=== PATIENT | female | born 1965 | race African-American/Black ===

== ENCOUNTER 2017-11-20 21:20 | Emergency (ER) | payer SELFPAY ==
[~2017-11-20 21:20] MED LIST: LISI10TA PO; Z.0.NO CURRENT MEDS
[2017-11-20 21:21] VITALS: BP 193/96; PULSE 91; RESP 18; TEMP 98.5
[2017-11-20] MEDS ORDERED: CARV12.52 PO (21:33)
[2017-11-20] MEDS ORDERED: LISI2.5T3 PO (21:33)
[2017-11-20] MEDS ORDERED: SODIUM CHLOR 0.9% 1000 ML INJ 1,000 ML IV SCH (21:49)
--- NOTE | 2017-11-20 21:57 | PD ---
HPI Chief Complaint: Abdominal Pain Time Seen by Provider: 21:37 Travel History International Travel<30 days: No Contact w/Intl Traveler<30days: No Traveled to known affect area: No History of Present Illness HPI The patient was seen and examined in the presence of the nurse. This patient complains of abdominal pain. Duration is 24 hours. Severity is moderate. She has nausea and vomiting. Denies fever or diarrhea. Location of her pain is epigastric primarily. She says she has a history of gallstones. Denies alcohol or drug abuse. No alleviating factors. Symptoms started after a greasy meal of fried chicken yesterday evening. That was the exacerbating factor. PFSH Past Medical History Asthma: Yes Cancer: No Cardiac Catheterization: Yes (AUG 2010) Cardiovascular Problems: Yes Congestive Heart Failure: Yes Diabetes: No Patient Takes Glucophage: No Diminished Hearing: No Endocrine: No Gastrointestinal Disorders: Yes Genitourinary: No Hypertension: Yes Immune Disorder: No Musculoskeletal: No Neurologic: No Psychiatric: No Reproductive: No Respiratory: Yes Immunizations Current: Yes Tetanus Vaccination: > 5 Years Influenza Vaccination: No ?: Not LMP: 11/04/17 : 3 Para: 3 Tubal Ligation: Yes Past Surgical History Abdominal Surgery: Yes ( C SECTION; TUBAL LIGATION) AICD: No Arteriovenous Shunt: No Section: Yes Insulin Pump: No Joint Replacement: No Pacemaker: No Other Surgery: Yes Social History Alcohol Use: No Tobacco Use: No Substance Use: No Allergies-Medications (Allergen,Severity, Reaction): Coded Allergies: No Known Allergies (Verified Adverse Reaction, Unknown, 11/20/17) Reported Meds & Prescriptions Reported Meds & Active Scripts Active Reported Lisinopril 2.5 Mg Tab 2.5 Mg PO DAILY Carvedilol 12.5 Mg Tab 12.5 Mg PO BID Review of Systems General / Constitutional: No: Fever Eyes: No: Visual changes HENT: No: Headaches Cardiovascular: No: Chest Pain or Discomfort Respiratory: No: Shortness of Breath Gastrointestinal: Positive: Nausea, Vomiting, Abdominal Pain Genitourinary: No: Dysuria Musculoskeletal: No: Pain Skin: No Rash Neurologic: No: Weakness Psychiatric: No: Depression Endocrine: No: Polydipsia Hematologic/Lymphatic: No: Easy Bruising Physical Exam Narrative GENERAL: Well-nourished, well-developed patient with abdominal pain . SKIN: Focused skin assessment reveals no rash and nodules. Skin is Warm and dry. HEAD: Atraumatic. Normocephalic. EYES: Pupils equal and round. No scleral icterus. No injection or drainage. ENT: No nasal bleeding or discharge. Mucous membranes pink and moist. NECK: Trachea midline. No JVD. CARDIOVASCULAR: Regular rate and rhythm. No murmur appreciated. RESPIRATORY: No accessory muscle use. Clear to auscultation. Breath sounds equal bilaterally. GASTROINTESTINAL: Abdomen soft, epigastrium is tender without rebound or guarding. nondistended. Hepatic and splenic margins not palpable. There is no lower quadrant or right upper quadrant tenderness MUSCULOSKELETAL: No obvious deformities. No clubbing. No cyanosis. No edema. NEUROLOGICAL: Awake and alert. No obvious cranial nerve deficits. Motor grossly within normal limits. Normal speech. PSYCHIATRIC: Appropriate mood and affect; insight and judgment normal. Data Data Last Documented VS Vital Signs Date Time Temp Pulse Resp B/P (MAP) Pulse Ox O2 Delivery O2 Flow Rate FiO2 11/20/17 21:21 98.5 91 18 193/96 (128) Orders Orders Complete Blood Count With Diff (11/20/17 21:49) Comprehensive Metabolic Panel (11/20/17 21:49) Lipase (11/20/17 21:49) Prothrombin Time / Inr (Pt) (11/20/17 21:49) Ct Abd/Pel W Iv Contrast(Rout) (11/20/17 21:49) Iv Access Insert/Monitor (11/20/17 21:49) NPO (11/20/17 21:49) Sodium Chlor 0.9% 1000 Ml Inj (Ns 1000 M (11/20/17 21:49) Sodium Chloride 0.9% Flush (Ns Flush) (11/20/17 22:00) Promethazine Inj (Phenergan Inj) (11/20/17 22:00) Hydromorphone Pf Inj (Dilaudid Pf Inj) (11/20/17 23:30) Iohexol 350 Inj (Omnipaque 350 Inj) (11/20/17 23:46) Labs Laboratory Tests Test 11/20/17 22:04 White Blood Count 8.1 TH/MM3 Red Blood Count 5.14 MIL/MM3 Hemoglobin 11.9 GM/DL Hematocrit 37.9 % Mean Corpuscular Volume 73.8 FL Mean Corpuscular Hemoglobin 23.1 PG Mean Corpuscular Hemoglobin Concent 31.3 % Red Cell Distribution Width 16.1 % Platelet Count 306 TH/MM3 Mean Platelet Volume 9.1 FL Neutrophils (%) (Auto) 75.7 % Lymphocytes (%) (Auto) 17.9 % Monocytes (%) (Auto) 4.5 % Eosinophils (%) (Auto) 0.8 % Basophils (%) (Auto) 1.1 % Neutrophils # (Auto) 6.2 TH/MM3 Lymphocytes # (Auto) 1.5 TH/MM3 Monocytes # (Auto) 0.4 TH/MM3 Eosinophils # (Auto) 0.1 TH/MM3 Basophils # (Auto) 0.1 TH/MM3 CBC Comment DIFF FINAL Differential Comment Prothrombin Time 10.4 SEC Prothromb Time International Ratio 1.0 RATIO Blood Urea Nitrogen 10 MG/DL Creatinine 1.00 MG/DL Random Glucose 106 MG/DL Total Protein 8.0 GM/DL Albumin 3.5 GM/DL Calcium Level 8.8 MG/DL Alkaline Phosphatase 127 U/L Aspartate Amino Transf (AST/SGOT) 22 U/L Alanine Aminotransferase (ALT/SGPT) 24 U/L Total Bilirubin 0.4 MG/DL Sodium Level 140 MEQ/L Potassium Level 4.2 MEQ/L Chloride Level 104 MEQ/L Carbon Dioxide Level 25.3 MEQ/L Anion Gap 11 MEQ/L Estimat Glomerular Filtration Rate 71 ML/MIN Lipase 89 U/L MDM Medical Decision Making Medical Screen Exam Complete: Yes Emergency Medical Condition: Yes Medical Record Reviewed: Yes Differential Diagnosis Pancreatitis, cholecystitis, hepatitis Narrative Course I have reviewed the patient's electronic medical record. IV placed and labs sent I gave her injection of Phenergan. She declines pain medicine at this time I gave 1 L normal saline IV bolus CBC is normal CMP is normal Lipase is normal CT of abdomen pelvis with IV contrast does not show any emergent findings. She does have gallstones but she is known that she has had them for at least 2 years. Patient is not tender over the gallbladder and she has no leukocytosis or elevation of LFTs or lipase or prior cholecystic fluid or gallbladder wall thickening to support acute cholecystitis. There is a small amount of ascites on the CT scan of unknown significance. She denies any alcohol abuse or history of liver disease and her LFTs are normal I gave her a pain injection and on recheck she feels much better Recommend she start with primary care follow-up and have a low-fat bland diet I did write her some as needed medication for pain or nausea if she needs it Diagnosis Primary Impression: Epigastric abdominal pain Additional Impression: Multiple gallstones Additional Instructions: The patient was advised to follow up with their physician and return if they worsen. The patient was warned about potential sedation for the medications they will receive on prescription. Use a low-fat bland diet Med/Other Pt SpecificInfo: Prescription(s) given Disposition: 01 DISCHARGE HOME Condition: Stable Chun Charles MD November 20, 2017 21:57
[2017-11-20] MEDS ORDERED: PROMETHAZINE INJ 25 MG/ML VIAL IM ONE (22:00)
[2017-11-20] MEDS ORDERED: SODIUM CHLORIDE 0.9% FLUSH 10 ML FLUSH IV FLUSH PRN (22:00)
[2017-11-20 22:27] LABS: AUTOMATED NEUTROPHIL # 6.2 TH/MM3 (1.8-7.7); BASOPHIL # 0.1 TH/MM3 (0-0.2); BASOPHIL % 1.1 % (0.0-2.0); EOSINOPHIL # 0.1 TH/MM3 (0-0.4); EOSINOPHIL % 0.8 % (0.0-4.0); HEMATOCRIT 37.9 % (35.0-46.0); HEMOGLOBIN 11.9 GM/DL (11.6-15.3); LYMPH % 17.9 % (9.0-44.0); LYMPHOCYTE # 1.5 TH/MM3 (1.0-4.8); MEAN CELL VOLUME 73.8 FL (80.0-100.0); MEAN CORPUSCULAR HEMOGLOBIN 23.1 PG (27.0-34.0); MEAN CORPUSCULAR HGB CONC 31.3 % (32.0-36.0); MEAN PLATELET VOLUME 9.1 FL (7.0-11.0); MONO % 4.5 % (0.0-8.0); MONOCYTE # 0.4 TH/MM3 (0-0.9); NEUT % 75.7 % (16.0-70.0); PLATELET COUNT 306 TH/MM3 (150-450); RED BLOOD COUNT 5.14 MIL/MM3 (4.00-5.30); RED CELL DISTRIBUTION WIDTH 16.1 % (11.6-17.2); WHITE BLOOD COUNT 8.1 TH/MM3 (4.0-11.0)
[2017-11-20 22:42] LABS: PROTHROMBIN TIME - PATIENT 10.4 SEC (9.8-11.6)
--- NOTE | 2017-11-20 22:59 | RADRPT ---
EXAM DATE/TIME: 11/20/2017 22:39 [facility] COMPARISON: No previous studies available for comparison. INDICATIONS : Abdomen pain IV CONTRAST: 75 cc Omnipaque 350 (iohexol) IV ORAL CONTRAST: No oral contrast ingested. RADIATION DOSE: 25.04 CTDIvol (mGy) MEDICAL HISTORY : Cardiovascular disease. Hypertension. SURGICAL HISTORY : Tubal ligation. ENCOUNTER: Initial ACUITY: 1 day PAIN SCALE: 5/10 LOCATION: Bilateral abdomen. TECHNIQUE: Volumetric scanning of the abdomen and pelvis was performed. Using automated exposure control and ad justment of the mA and/or kV according to patient size, radiation dose was kept as low as reasonably achievable to obtain optimal diagnostic quality images. DICOM format image data is available electro nically for review and comparison. FINDINGS: Lung bases are clear. No acute findings in the liver. Small cysts in the spleen measuring up to 1.7 a nd 1.5 cm. Adrenals, kidneys and pancreas unremarkable. Multiple layering gallstones in the gallbladd er. Mild ascites around the liver and spleen and in the pelvis. No biliary ductal dilatation. No free fluid. No bowel obstruction. No adenopathy. No acute bony abnormalities. CONCLUSION: 1. Mild ascites. 2. Multiple gallstones without biliary ductal dilatation. 3. Small splenic cysts. No acute bony abnormality. Cb Carpenter MD on November 20, 2017 at 22:52 Board Certified Radiologist. This report was verified electronically.
[2017-11-20] MEDS ORDERED: HYDROmorphone HCL PF 2 MG/ML VIAL IVS ONE (23:30)
[2017-11-20 23:31] LABS: ALBUMIN 3.5 GM/DL (3.4-5.0); BLOOD UREA NITROGEN 10 MG/DL (7-18); CALCIUM 8.8 MG/DL (8.5-10.1); GLOMERULAR FILTRATION RATE 71 ML/MIN (>89); GLUCOSE,RANDOM 106 MG/DL (74-106)
[2017-11-20 23:32] LABS: ALKALINE PHOSPHATASE 127 U/L (45-117); ALT (GPT) 24 U/L (10-53); AST (GOT) 22 U/L (15-37); BICARBONATE 25.3 MEQ/L (21.0-32.0); CHLORIDE 104 MEQ/L (98-107); SODIUM (NA) 140 MEQ/L (136-145); TOTAL BILIRUBIN ADULT 0.4 MG/DL (0.2-1.0)
[2017-11-20] MEDS ORDERED: IOHEXOL 350 MG/ML 10 ML VIAL (for RAD DIAG) IVCONTRAST ONE (23:46)
[2017-11-21] MEDS ORDERED: PERC5TAB12 PO (00:18)
[2017-11-21] MEDS ORDERED: ZOFR4TAB PO (00:18)
[2017-11-21] MEDS ORDERED: PROM25TA10 PO (00:40)
== END 2017-11-21 00:50 | disposition home or self-care (01) ==
LOC: NEPD 21:20
DX: R10.13 Epigastric pain (principal); K80.20 Calculus of gallbladder without cholecystitis without obstruction; R18.8 Other ascites; I11.0 Hypertensive heart disease with heart failure; I50.9 Heart failure, unspecified
CPT/HCPCS: 74177; 80053; 83690; 85025; 85610; 96361; 96372; 96374; 99284; J1170; J2550; J7030; Q9967